=== PATIENT | female | born 1980 | race Caucasian/White ===

== ENCOUNTER 2017-01-22 09:54 | Emergency (ER) | payer SELFPAY ==
[~2017-01-22] VITALS: Ht 172.7 cm; Wt 90.0 kg
[2017-01-22 10:00] VITALS: TEMP 36.8; Ht 172.7 cm; Wt 90.0 kg
[2017-01-22] MEDS ORDERED: CEPH500C PO (11:46)
--- NOTE | 2017-01-22 11:46 | EMERGENCY ROOM VISIT NOTE ---
ED Visit Note First contact with patient: 10:23 CHIEF COMPLAINT: Poor healing wound left medial ankle 2 weeks HISTORY OF PRESENT ILLNESS: Patient is a 36-year-old white female who presents emergency department for evaluation of a wound on her medial left lower leg. It has been present for about 2 weeks. She reports that she had a small dark spot in that area prior, states that it became slightly larger, opened up and drained bloody, purulent material. She had been keeping it covered and apply antibiotic ointment to the area. It was getting larger, and more bad, however she left the area open to the area yesterday and it looks better today than it did yesterday. She denies any pain today. There has been no fever or chills. She is a remote history of a DVT in this leg, and does have some chronic swelling and edema for which she wears compression stockings as needed and she is active. REVIEW OF SYSTEMS: Review of systems as per HPI. All other systems reviewed were negative. At least 6 systems reviewed. PMH: Electronic medical records are reviewed and summarized as above/below. See Problem List. She has a remote history of DVT that was suspected to be related to both oral contraceptive use and smoking. She is not presently anticoagulated. SOCIAL HISTORY: Patient lives at home. She is a smoker. Drinks alcohol socially. PHYSICAL EXAM: Vital Signs: Reviewed Nurse's notes. GENERAL: Patient is a pleasant, well-appearing 36-year-old white female who is awake and alert and in no acute distress. Alert, not toxic-appearing or in acute distress. INTEGUMENTARY: Examination of the medial left lower leg, just proximal to the ankle show a roughly 3 cm circular scabbed over lesion, with some peripheral scale. The area is nontender to palpation. There is no fluctuance noted. No drainage or discharge is present. No lymphangitic streaking. There is mild pitting edema noted in the lower leg. The calf is soft and nontender. No palpable cords. Capillary refills less than 2 seconds. Dorsalis pedis and posterior tibialis pulses are easily palpable. EMERGENCY DEPARTMENT COURSE: The patient was seen and examined as above. She has a slowly healing lesion on the medial left ankle. There are no signs of infection at this time. She does not have any findings consistent with venous stasis disease or peripheral arterial disease. There is no evidence or cellulitis or abscess. Osteomyelitis was felt to be unlikely. The patient was encouraged to continue local wound care measures. Healing may have been impaired by the fact that she has been keeping the wound covered and occasionally has the area covered by a compressive support hose. She was encouraged to leave it open to the environment as much as possible, and to monitor for any signs of infection. She was given a prescription for Keflex that she can use if she is worried about developing signs of infection, and was encouraged that she should seek immediate medical attention if she feels she does have to start the antibiotics. She may benefit from wound care referral if her symptoms are not improving. Medication reconciliation: I attest that I have personally reviewed the patient' s current medication list. Blood pressure screening : Patient was found to have normal blood pressure on screening and does not require follow-up. Problem List Medical Problems: (1) History of DVT (deep vein thrombosis) Status: Resolved Surgical Problems: (1) History of appendectomy Status: Resolved Current/Historical Medications Scheduled Cephalexin Monohydrate (Keflex), 500 MG PO TID Allergies Coded Allergies: No Known Allergies (Unverified , 01/22/17) Vital Signs Date Time Temp Pulse Resp B/P (MAP) Pulse Ox O2 Delivery O2 Flow Rate FiO2 01/22/17 11:53 60 20 142/93 100 01/22/17 10:00 36.8 80 16 142/92 100 Room Air Departure Information Impression Primary Impression: Healing wound Prescriptions Cephalexin Monohydrate (Keflex) 500 Mg Cap 500 MG PO TID, #21 CAP Prov: Katie Suggs PA 01/22/17 Referrals No Doctor, Assigned (PCP) Patient Instructions My [facility] Additional Instructions Keep wound clean and dry. Cover with a thin layer of antibiotic ointment once or twice daily. Cover with a bandage only as necessary to protect your clothing. Return sooner for any signs of infection (increasing redness, swelling, drainage). Elevate for swelling and pain. Ibuprofen 600 mg and Tylenol 1000 mg every 6 hrs for pain.
[2017-01-22 11:53] VITALS: BP 142/93; PULSE 60; O2SAT 100
== END 2017-01-22 11:56 | disposition home or self-care (01) ==
LOC: C.EDB 09:56
DX: S91.002A Unspecified open wound, left ankle, initial encounter (principal); X58.XXXA Exposure to other specified factors, initial encounter; Z86.718 Personal history of other venous thrombosis and embolism; F17.210 Nicotine dependence, cigarettes, uncomplicated